=== PATIENT | male | born 1995 | race Caucasian/White ===

== ENCOUNTER 2023-05-05 16:06 | Outpatient (CLI) | payer OTHER ==
--- NOTE | 2023-05-08 11:54 | MRI Report ---
PROCEDURE: Wrist RT WO INDICATIONS: WRIST PAIN TECHNIQUE: Noncontrast coronal proton density fast spin echo, T1 spin echo, and T2 fast spin echo with fat satur ation; coronal 3-D gradient echo, axial T1 spin echo and T2 fast spin echo with fat saturation, sagit estuardo T1 spin echo through the wrist. COMPARISON: None. FINDINGS: Image quality: Excellent. Bones and cartilage: The carpal bones are normally aligned. No bone marrow contusions or fractures. No evidence for avascular necrosis. Carpal ligaments: The scapholunate and lunotriquetral ligaments appear intact. On sagittal images, the pisohamate ligament appears intact. Triangular fibrocartilage complex: The triangular fibrocartilage appears intact. Tendons and soft tissues: The carpal tunnel structures appear normal, including the median nerve. T he ulnar nerve appears normal within Guyon's canal. The extensor carpi ulnaris tendon is thickened a nd mild volar subluxation relative to the ulnar groove. The remaining extensor tendon compartments de monstrate normal morphology, without pathologic tendon sheath fluid. Thin lobular ganglion cyst at th e volar radial aspect of the radiocarpal joint measures up to 15 x 4 x 2 mm. A 4 x 2 x 3 mm ganglion cyst is seen volar to the 2nd carpometacarpal joint. 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 2.No acute trabecular bone injury. No significant ligament injury is seen. The remaining tendons appe ar to be intact. 3.Small ganglion cysts at the volar radial aspect of the radiocarpal joint and volar to the 2nd carpo metacarpal joint. Reviewed by: aRnjit Mcghee MD on 05/08/2023 11:53 AM [facility] Approved by: Ranjit Mcghee MD on 05/08/2023 11:53 AM PST Station ID: [id number]
== END 2023-05-05 16:07 | disposition home or self-care (01) ==
LOC: DI 16:06
PROVIDERS: ATTEND Student in an Organized Health Care Education/Training Program
DX: M67.833 Other specified disorders of tendon, right wrist (principal); M67.431 Ganglion, right wrist